=== PATIENT | female | born 1930 | race Two or more races ===

== ENCOUNTER 2017-12-23 21:34 | Emergency (ER) | payer MEDICARE, MEDICAID ==
[~2017-12-23] VITALS: Ht 172.7 cm; Wt 81.6 kg
--- NOTE | 2017-12-23 21:55 | NUR ---
20G RIGHT HAND IV STARTED, BLOOD SAMPLE OBTAINED AND SENT TO LAB
[2017-12-23 22:05] LABS: BASOPHILS % (AUTO) 0.2 % (0.0-2.0); EOSINOPHILS % (AUTO) 3.9 % (0.0-6.0); HEMATOCRIT 39 % (33-45); HEMOGLOBIN 13.1 g/dL (11.5-14.8); LYMPHOCYTES # (AUTO) 2.3 /CMM (0.8-4.8); LYMPHOCYTES % (AUTO) 23.4 % (20.0-44.0); MEAN CORPUSCULAR HEMOGLOBIN 31 PG (26.0-33.0); MEAN CORPUSCULAR HGB CONC 33 g/dl (31.0-36.0); MEAN CORPUSCULAR VOLUME 94 fL (82-100); MONOCYTES # (AUTO) 0.7 /CMM (0.1-1.30); MONOCYTES % (AUTO) 7.2 % (2.0-12.0); NEUTROPHILS # (AUTO) 6.3 /CMM (1.8-8.9); NEUTROPHILS % (AUTO) 65.3 % (43.0-81.0); PLATELET COUNT (AUTO) 227 /CMM (150-450); RDW COEFFICIENT OF VARIATION 14.1 (11.5-15.0); RED BLOOD CELL COUNT(AUTO) 4.18 MIL/uL (4.0-5.2); WHITE BLOOD COUNT (AUTO) 9.7 K/uL (4.3-11.0)
[2017-12-23 22:17] LABS: CARBON DIOXIDE 24 mmol/L (21-32); CHLORIDE 103 mmol/L (98-107); CREATININE 0.7 mg/dL (0.6-1.3); GLUCOSE 113 mg/dL (74-106); POTASSIUM 4.2 mmol/L (3.5-5.1); SODIUM SERUM 134 mmol/L (136-145); UREA NITROGEN, BLOOD 24 mg/dL (7-18)
[2017-12-23 22:23] LABS: ALANINE AMINOTRANSFERASE 22 U/L (12-78); ALBUMIN 3.1 g/dL (3.4-5.0); ALKALINE PHOSPHATASE 79 U/L (46-116); ASPARTATE AMINOTRANSFERASE 23 U/L (15-37); BILIRUBIN,DIRECT 0.1 mg/dL (0.0-0.2); BILIRUBIN,TOTAL 0.5 mg/dL (0.2-1.0); TOTAL PROTEIN, SERUM 7.8 g/dL (6.4-8.2)
[2017-12-23 22:25] LABS: TROPONIN I < 0.017 ng/mL (0.00-0.056)
[2017-12-23 22:31] LABS: INR 1.26 (0.87-1.13)
--- NOTE | 2017-12-23 23:30 | NUR ---
DR GERARDO EDGAR PAGED PER DR ZULUAGA. - [phone]
[2017-12-24] MEDS ORDERED: METOPROLOL TARTRATE INJ 5 MG/5 ML AMPUL ONE
--- NOTE | 2017-12-24 00:04 | NUR ---
CALLED [facility] AND DR DUTTA WAS REPAGED
[2017-12-24] MEDS: METOPROLOL TARTRATE INJ 5 MG/5 ML AMPUL IV ONE (00:06)
--- NOTE | 2017-12-24 00:15 | NUR ---
CALLED [facility] TRANSFER [facility] AND SPOKE TO NIGEL AND REQUESTED TRANSFER SERVICE FOR THIS PT AND INFORMED THEM THAT DR DUTTA HAS ACCEPTED THIS PT. FAXING FACESHEET AND IMAGING TO
--- NOTE | 2017-12-24 00:39 | NUR ---
RECEIVED A CALL FROM [facility] AND PER NIGEL, THIS PT WILL NOT BE ACCEPTED UNTIL THEIR FINANCE TEAM ARRIVES IN THE MORNING. MD AND FAMILY MADE AWARE.
[2017-12-24] MEDS ORDERED: ONDANSETRON HCL/PF 4 MG/2 ML VIAL ONE ×2 (01:12→01:13)
[2017-12-24] MEDS ORDERED: HYDROMORPHONE INJ 2 MG/ML DISP.SYRIN ONE (01:13)
[2017-12-24] MEDS ORDERED: ACETAMINOPHEN ES 500 MG TABLET ONE ×2 (01:29→07:18)
[2017-12-24] MEDS: ACETAMINOPHEN ES 500 MG TABLET PO ONE ×2 (01:33→07:23)
--- NOTE | 2017-12-24 02:00 | NUR ---
PT RESTING IN BED COMFORTABLY. WILL CONTINUE TO MONITOR FOR ANY CHANGES
--- NOTE | 2017-12-24 04:36 | NUR ---
PATIENT FAMILY AT BEDSIDE. PT IS COMFORTABLE SLEEPING. PT IS TACHYCARDIC AT THIS TIME. MADE AWARE
--- NOTE | 2017-12-24 05:44 | NUR ---
PT STABLE. WILL CONTINUE TO MONITOR FOR ANY CHANGES DURING THE SHIFT.
--- NOTE | 2017-12-24 08:16 | NUR ---
[facility] CALLED, SPOKE WITH NETO, STILL WORKING ON TX
--- NOTE | 2017-12-24 08:20 | NUR ---
FAMILY UPDATED OF TX
--- NOTE | 2017-12-24 09:53 | NUR ---
RECEIVED A CALL FROM [facility] WITH ROOM [id number] FOR PT ADMISSION UNDER DR. DUTTA. REQUESTING FOR CALL BACK ONCE TRANSPORTATION IS DONE AT [phone].
--- NOTE | 2017-12-24 10:07 | NUR ---
CALLED TRANSPORT TRIP NUMBER [place] [id number] TRANSPORT WILL CALL WITH [facility]
--- NOTE | 2017-12-24 10:33 | NUR ---
1 HOUR ETA FOR [facility]
--- NOTE | 2017-12-24 10:35 | NUR ---
TRANSPORT WILL BE HERE AT 1130M
[2017-12-24] MEDS ORDERED: KETOROLAC TROMETHAMINE INJ 30 MG/ML VIAL ONE (10:36)
[2017-12-24] MEDS: KETOROLAC TROMETHAMINE INJ 30 MG/ML VIAL IV ONE (10:40)
[2017-12-24 11:55] VITALS: BP 149/95
--- NOTE | 2017-12-24 11:55 | NUR ---
REPORT GIVEN TO MARCELL WALLACE OF [facility].
== END 2017-12-24 12:03 | disposition short-term general hospital (02) ==
LOC: EDBD 21:36 → ER 21:36
DX: S72.491A Other fracture of lower end of right femur, initial encounter for closed fracture (principal); I48.2 Chronic atrial fibrillation; F03.90 Unspecified dementia, unspecified severity, without behavioral disturbance, psychotic disturbance, mood disturbance, and anxiety; I10 Essential (primary) hypertension; K21.9 Gastro-esophageal reflux disease without esophagitis; E03.9 Hypothyroidism, unspecified; Z91.040 Latex allergy status; Z96.653 Presence of artificial knee joint, bilateral; Z86.711 Personal history of pulmonary embolism; Z87.81 Personal history of (healed) traumatic fracture; W01.0XXA Fall on same level from slipping, tripping and stumbling without subsequent striking against object, initial encounter; Y93.01 Activity, walking, marching and hiking; Y92.89 Other specified places as the place of occurrence of the external cause; Y99.8 Other external cause status
CPT/HCPCS: 29505; 36415; 71045; 72170; 73564; 80048; 80076; 84484; 85025; 85730; 93005; 96374; 96375; 99285; A4606; J1170; J1885; J2405; J3490; Z7610